=== PATIENT | female | born 1950 | race Hispanic/Latino ===

== ENCOUNTER 2017-07-17 11:40 | Outpatient (CLI) | payer MEDICARE, OTHER ==
--- NOTE | 2017-07-17 13:24 | Cat Scan Report ---
CT ABDOMEN PELVIS WITHOUT CONTRAST: HISTORY: Microscopic hematuria. COMPARISON: none. TECHNIQUE: Helical CT in 1.25mm intervals without IV contrast. Sagittal and coronal reconstructions. FINDINGS: Lung bases: Normal. Liver: Normal. Biliary system: Normal. Pancreas: Normal. Spleen: Normal. Kidneys/ureters/bladder: The left kidney is normal size, contour and position. No focal left renal lesion. There are 2 cysts in the right kidney. A large exophytic cyst at the inferior pole measures 8.8 cm in diameter. A 1.3 cm exophytic cyst is noted at the superior pole. There is no evidence for nephrolithiasis or hydronephrosis. The ureters are normal course and caliber. The bladder is partially empty but unremarkable. Adrenal glands: 1 cm left adrenal nodule in the medial limb is consistent with an adrenal adenoma. The right adrenal gland is normal. Aorta: Diffuse aortic calcifications. Fusiform dilatation of the distal aorta just above the bifurcation measures 3.7 cm. Fusiform dilatation of the right common iliac artery measures 2.7 cm. Intestines: The mild sigmoid diverticulosis is identified. The bowel loops are within normal limits otherwise. Appendix: Normal. Pelvic viscera: Hysterectomy. Ascites: None. Adenopathy: None. Musculoskeletal: Minimal thoracolumbar spondylosis. No fracture or suspicious bony lesion. IMPRESSION: Right renal cysts as described, Bosniak class I. No evidence for nephrolithiasis. No clear explanation for microscopic hematuria. 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 Mild sigmoid diverticulosis. Left adrenal adenoma
== END 2017-07-17 11:41 | disposition home or self-care (01) ==
LOC: CT 11:40
PROVIDERS: ATTEND Urology
DX: D35.02 Benign neoplasm of left adrenal gland (principal); N28.1 Cyst of kidney, acquired; K57.30 Diverticulosis of large intestine without perforation or abscess without bleeding; I70.0 Atherosclerosis of aorta; M47.894 Other spondylosis, thoracic region; Z90.710 Acquired absence of both cervix and uterus
CPT/HCPCS: 74176

== ENCOUNTER 2018-07-22 15:18 | Emergency (ER) | payer MEDICARE, OTHER ==
--- NOTE | 2018-07-22 15:30 | Emergency Department Report ---
Blank Doc - Documentation Documentation: This is a 68-year-old female that presents with right shoulder pain. Stated she tripped and loss balance and landed on right shoulder. This initial assessment/diagnostic orders/clinical plan/treatment(s) is/are subject to change based on patient's health status, clinical progression and re- assessment by fellow clinical providers in the ED. Further treatment and workup at subsequent clinical providers discretion. Patient/guardians urged not to elope from the ED as their condition may be serious if not clinically assessed and managed. Initial orders include: 1- Patient sent to MAIN ED for further evaluation and treatment 2- xray
[2018-07-22 16:15] VITALS: BP 92/63
[2018-07-22] MEDS ORDERED: ULTRAM PO ONE (16:23)
--- NOTE | 2018-07-22 16:23 | Emergency Department Report ---
ED Upper Extremity Inj HPI - General Chief Complaint: Shoulder Injury Stated Complaint: LT SHOULDER INJURY Time Seen by Provider: 07/22/18 15:29 Source: patient Mode of arrival: Wheelchair Limitations: No Limitations - History of Present Illness Initial Comments: 68-year-old female presents to ED with right shoulder pain. Patient tripped and fell while stepping into her garage. She reports swelling to her right shoulder, denies numbness or tingling to her right fingers. Patient denies head injury, LOC. MD Complaint: Injury to:: right, shoulder -: This afternoon Other Injuries: none Place: home Improves With: immobilization Worsens With: movement of extremity Context: fall Associated Symptoms: denies: weakness, numbness - Related Data Previous Rx's Medication Instructions Recorded Last Taken Type traMADol [Ultram] 50 mg PO Q6HR PRN #10 tablet 07/22/18 Unknown Rx Allergies Allergy/AdvReac Type Severity Reaction Status Date / Time Penicillins Allergy Unknown Verified 07/22/18 15:23 ED Review of Systems ROS: Stated complaint: LT SHOULDER INJURY Other details as noted in HPI Comment: All other systems reviewed and negative Respiratory: denies: shortness of breath Cardiovascular: denies: chest pain Musculoskeletal: as per HPI Neurological: denies: headache, numbness, paresthesias ED Past Medical Hx - Past Medical History Hx Hypertension: Yes Hx Arthritis: Yes - Surgical History Hx Coronary Stent: Yes - Social History Smoking Status: Current Every Day Smoker Substance Use Type: None - Medications Home Medications: Home Medications Medication Instructions Recorded Confirmed Last Taken Type traMADol [Ultram] 50 mg PO Q6HR PRN #10 tablet 07/22/18 Unknown Rx ED Physical Exam - General Limitations: No Limitations General appearance: alert, in no apparent distress - Head Head exam: Present: atraumatic, normocephalic - Eye Eye exam: Present: normal appearance - ENT ENT exam: Present: mucous membranes moist - Neck Neck exam: Present: normal inspection - Respiratory Respiratory exam: Present: normal lung sounds bilaterally. Absent: respiratory distress - Cardiovascular Cardiovascular Exam: Present: regular rate, normal rhythm - GI/Abdominal GI/Abdominal exam: Absent: distended - Extremities Exam Extremities exam: Present: other (swelling/ deformity to right shoulder; tenderness to anterior right shoulder w/ decreased ROM; able to flex and extend right wrist and fingers) - Neurological Exam Neurological exam: Present: alert, oriented X3. Absent: motor sensory deficit - Psychiatric Psychiatric exam: Present: normal affect, normal mood - Skin Skin exam: Present: warm, dry, intact, normal color. Absent: rash ED Course Vital Signs 07/22/18 07/22/18 07/22/18 15:29 16:12 16:13 Temperature 98 F Pulse Rate 94 H Respiratory 18 Rate Blood Pressure 102/60 92/63 O2 Sat by Pulse 95 96 93 Oximetry 07/22/18 16:15 Temperature 98.7 F Pulse Rate 81 Respiratory Rate Blood Pressure O2 Sat by Pulse Oximetry ED Medical Decision Making - Radiology Data Radiology results: report reviewed, image reviewed - Medical Decision Making - nondisplaced fx of humeral head - neurovascularly intact - ortho info given, advised to call tomorrow to set up appt - return precautions given - Differential Diagnosis fracture, dislocation, sprain Critical care attestation.: If time is entered above; I have spent that time in minutes in the direct care of this critically ill patient, excluding procedure time. ED Disposition Clinical Impression: Fracture of humeral head, right, closed Disposition: DC-01 TO HOME OR SELFCARE Is pt being admited?: No Condition: Stable Instructions: Arm Fracture in Adults (ED) Prescriptions: traMADol [Ultram] 50 mg PO Q6HR PRN #10 tablet PRN Reason: Pain Referrals: NATAN BETANCOURT MD [Staff Physician] - 24 Hours Time of Disposition: 16:54
--- NOTE | 2018-07-22 16:46 | XRay Report ---
PROCEDURE: XR SHOULDER 2+V RT TECHNIQUE: 3 views of the right shoulder HISTORY: right shoulder pain COMPARISONS: None. FINDINGS: There is a mildly impacted, nondisplaced fracture of the humeral head. The glenohumeral and acromiocl avicular joint spaces are preserved. There is diffuse osteopenia. The overlying soft tissues are inta ct. IMPRESSION: Mildly impacted nondisplaced fracture of the humeral head. This document is electronically signed by Charlotte Bradley MD., July 22 2018 04:44:48 PM ET
== END 2018-07-22 17:00 | disposition home or self-care (01) ==
LOC: ED 15:18
DX: S42.201A Unspecified fracture of upper end of right humerus, initial encounter for closed fracture (principal); Z88.0 Allergy status to penicillin; W01.0XXA Fall on same level from slipping, tripping and stumbling without subsequent striking against object, initial encounter; Y93.89 Activity, other specified; Y92.89 Other specified places as the place of occurrence of the external cause; Y99.8 Other external cause status